=== PATIENT | male | born 1940 | race Caucasian/White ===

== ENCOUNTER 2016-09-16 | Outpatient (CLI) | payer MEDICARE, OTHER | END 2016-09-16 14:46 | disposition home or self-care (01) ==

== ENCOUNTER 2016-10-14 15:10 | Outpatient (CLI) | payer MEDICARE, OTHER | END 2016-10-14 15:11 | disposition home or self-care (01) | DX: G89.29 Other chronic pain (principal); M54.6 Pain in thoracic spine; J44.9 Chronic obstructive pulmonary disease, unspecified; K59.00 Constipation, unspecified; R53.83 Other fatigue; Z99.81 Dependence on supplemental oxygen; Z66 Do not resuscitate; Z79.891 Long term (current) use of opiate analgesic; Z51.5 Encounter for palliative care ==

== ENCOUNTER 2016-12-15 15:00 | Outpatient (CLI) | payer MEDICARE, OTHER | END 2016-12-15 15:01 | disposition home or self-care (01) | DX: Z51.5 Encounter for palliative care (principal); M54.6 Pain in thoracic spine; G89.29 Other chronic pain; J44.9 Chronic obstructive pulmonary disease, unspecified; K59.00 Constipation, unspecified; R53.83 Other fatigue; Z99.81 Dependence on supplemental oxygen; Z79.891 Long term (current) use of opiate analgesic; Z66 Do not resuscitate ==

== ENCOUNTER 2017-01-12 15:30 | Outpatient (CLI) | payer MEDICARE, OTHER | END 2017-01-12 15:31 | disposition home or self-care (01) | DX: Z51.5 Encounter for palliative care (principal); R06.00 Dyspnea, unspecified; S22.009D Unspecified fracture of unspecified thoracic vertebra, subsequent encounter for fracture with routine healing; J44.9 Chronic obstructive pulmonary disease, unspecified; Z99.81 Dependence on supplemental oxygen; M54.6 Pain in thoracic spine; R00.0 Tachycardia, unspecified; Z79.891 Long term (current) use of opiate analgesic; Z79.52 Long term (current) use of systemic steroids; Z79.899 Other long term (current) drug therapy; Z79.51 Long term (current) use of inhaled steroids; Z66 Do not resuscitate ==

== ENCOUNTER 2017-02-02 15:30 | Outpatient (CLI) | payer MEDICARE, OTHER ==
--- NOTE | 2017-02-04 10:02 | CONSULTATION NOTE ---
DATE OF CONSULTATION: 02/02/2017 00:00:00 REQUESTING PROVIDER: Momo Cox MD. TIME OF VISIT: 5692-1281. TOPIC: Followup palliative care consult. Thank you, Dr. Cox, for asking the palliative care consult service to be involved in the care of your patient. I am seeing him for pain and symptom management. He is seen in his home setting second jameel to a considerable and taxing effort for him to leave the home related to his baseline dyspnea, fa tigue and respiratory compromise. 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 He continues to have severe breathlessness w ith inability to leave the home and unable to participate in any sustained activity without increased respiratory distress. He has actually been more breathless from his baseline over the last couple of weeks and most severely over the last several days. The patient has had recurrent pneumonias in the past, but has remained actually quite well, as far as no further hospitalizations this last year, but has had close monitoring through the palliative care team. He had tried a prednisone burst without a ny improvement in symptoms. Today, he reports no increase in cough. No fever or chills, just less act ivity tolerance. Had been able originally when we met to shower daily, every other day, every third d ay, and this last week he can barely tolerate showering at all, needing assistance from his . He has had some increased anxiety and pain in his back, awakened early in the morning needing extra dose of IV hydromorphone. The patient uses hydromorphone for breathlessness and for his pain, but the pat ient is unable tolerate morphine, has had acute delirium on this. His other ALLERGY IS OXYCONTIN, whi ch has caused him tremors in the past. His pain is located about the T12 area. It includes back spasm s as well. He continues to be tachycardic. Today, he presents at about 100, and with any kind of acti vity or conversation is up to 116. His breath sounds are diminished at his baseline, though today I d o note he has some crackles and some wheezing in his left lower lobe from his baseline. He does have a nebulizer he uses a couple of times a day, has needed an extra one recently. His pain fluctuates, but has increased over the last few days. Has needed extra Dilaudid, he uses abo ut 2 tabs every 5 hours. Does feel like this provides good control, both of his pain and his breathle ssness. We have toyed with increasing his fentanyl, but given that he can use the Dilaudid in respons e to his respiratory distress and addresses his pain as well, did not want to add to sedation. has ac tually been able to ambulate. He does sleep quite a bit, but he is not sedated. CURRENT MEDICATION LIST 1. Tamsulosin 0.4 mg 1 extended release daily. 2. Furosemide 40 mg 1 tablet a.m. and noon. 3. Prednisone 10 mg daily. 4. Omeprazole, he is to restart this at 20 mg daily, has been off for a while. 5. Digoxin 125 mcg daily. 6. Xarelto 20 mg daily. 7. Baclofen 1 tab t.i.d. 8. Diltiazem 120 mg t.i.d. 9. Escitalopram 20 mg daily. 10. Echinacea 380 mg daily. 11. Mirtazapine 15 mg at bedtime. 12. Losartan 25 mg twice a day. 13. Guaifenesin 400 mg twice a day p.r.n. 14. Docusate sodium 250 mg 2 tabs b.i.d. 15. Zolpidem 5 mg at night p.r.n. 16. Hydromorphone 2 mg 1-2 tabs q.3h. p.r.n. breakthrough pain and breathlessness, up to 10 tabs a da y. 17. Alprazolam 0.5 mg 1/2 tab up to 4 times a day. 18. Atorvastatin 10 mg 1/2 tab at bedtime. 19. Potassium chloride 10 mEq daily. 20. Spiriva HandiHaler 18 mcg capsule daily. 21. Pulmicort Respules 0.25 in 2 mL, 1 vial nebulizer twice a day. 22. Fentanyl patch 25 mcg 1 patch every day for 3 days. CODE STATUS: THE PATIENT IS DO NOT ATTEMPT RESUSCITATION, DO NOT INTUBATE, LIMITED INTERVENTIONS, DET ERMINE THE USE OR LIMITATION OF ANTIBIOTICS WITH COMFORT THE GOAL AND NO MEDICALLY ASSISTED NUTRIT ION. BRIEF SOCIAL HISTORY: He is to his , Jennifer. This has been a very prolonged extended period o f distress for her. He has been acutely and chronically ill for several years, has mostly been house- bound for almost a year now and does not tolerate, both from anxiety and respiratory compromise, aleksandr g out. He does have some extensive support network from his yazdanism community, Jew, and frequent visitors. He does feel somewhat isolated, but has never complained of any depression. He has a very p ragmatic approach to all of this and denies being scared. He has a strong yin. Of note, his baselin e personality is somewhat anxious. He is also a [place] vet and this has been an important part of hi s life. PERFORMANCE STATUS: This continues to be compromised. He is able to ambulate short distances in the h ouse with his oxygen. Showering has become even more burdensome. His has had to help him this la st few weeks, which is new. He does not ambulate with assistive devices, but does spend most of his t arelis in the recliner or in his den watching TV. I would put him at a palliative care performance statu s at 50%. REVIEW OF SYSTEMS HEENT: Slightly hard of hearing. Has had some postnasal drip, has to clear his throat frequently. CARDIOVASCULAR: No chest pain or fluttering. The patient is on Xarelto for long-term atrial fibrillat ion. RESPIRATORY: As noted above. Reports perceived increased breathlessness and poor activity tolerance. GASTROINTESTINAL: Reports his bowels are moving. He has had some further taste changes, things have n ot tasted good. Some early satiety. Remains weight neutral though at 150. GENITOURINARY: The patient does catheterize himself 2-3 times a day for BPH. MUSCULOSKELETAL: Has stiffness and osteoarthritis, very poor activity tolerance. NEUROLOGIC: He is alert and oriented x3, quite bright and interactive, but does seem a little bit mor e distracted and difficulty concentrating today. PSYCHIATRIC: Denies depression, though admits to sadness and anxiety. ENDOCRINE: No hypothyroidism or diabetes. HEMATOLOGIC/IMMUNOLOGIC: Was treated last fall for an elevated white count and increased breathlessne ss, but other than that has not been hospitalized since last December for actually a UTI, not pneumonia. PHYSICAL EXAMINATION GENERAL APPEARANCE: He does have a slight cushingoid appearance in his face and respiratory rate incr eases with any conversation or activity. He does appear more breathless at rest. EYES: Slight periorbital edema. ENT: His mucous membranes are moist. No lymphadenopathy, no candidiasis. NECK: Trachea midline. RESPIRATORY: As noted above. VITAL SIGNS: Temperature 95.9, blood pressure 132/78, pulse 100, respiratory rate 28 at rest. O2 satu rations on 3 liters 92%. ABDOMEN: Slight protruding, firm, but soft. SKIN: Skin color pale. A few small hematoma on his forearm. EXTREMITIES: No lower extremity. PALLIATIVE CARE DISCUSSION: Who is present, myself, the patient, and his . We originally had our visit scheduled next week, but given his decline in status and the stress, I told his he felt li ke it was time for hospice. We did discuss given his current decline, my concern for being able to pr ovide increased support, particularly in the face of more difficulty with bathing, Jennifer needing more almazan pport to manage her caregiver fatigue and acknowledging the fact that he is showing more signs of dec line related to his disease process. His hesitation of course with hospice is it does mean that he is failing and moving towards end of life. He reports he is not scared, but is definitely apprehensive. Some of his hesitation of transitioning is we have a long-term relationship, but reassured him that transitioning to the hospice team would provide even more support and also decrease the course of iso lation as well. It is felt, given the conversation, the other hesitation was in transitioning to hosp ice as far as their friends and community, this would send out a message that he is imminently dying. Did address as far as hospice support and COPD, it is expected to be a more long-term relationship a nd that people sometimes "graduate." Also, if it was not a good fit or he improved to a point where sagar holt did not need the support of the hospice team, he could choose to come off hospice as well. His , Jennifer, is ready for some support. We did also though discuss that it needed to be at a point that he i s ready for no further hospitalizations, to focus on comfort only, and the goal would be to have a de ath at home, that hospice would become their 911. This actually was quite appealing to him, despite c onversations before that he would accept hospitalization. He does appear quite fatigued and resigned to his ongoing decline. Given the acute changes and the patient's goals, we did have a conversation a bout weighing the benefits and burdens of further treatment at this point in time. Agreed, would go a head and try a round of antibiotics. The patient did not want to go to the hospital or try to get a c hest x-ray, so we will be treating in response to his symptoms without confirmation. He is hoping of course for quality and quantity of life. He did want to see and give some time to sit with this decis ion over the weekend. Temporary arrangements were made for admit on Monday. If he changes his mind , he will call us on Monday. I did weigh in, as he did ask my recommendation, which was to transitherson romano to the hospice team. IMPRESSION: This is a 76-year-old gentleman with severe obstructive pulmonary disease with increased respiratory effort, functional decline, and ongoing escalating symptom burden. Suspect the patient poppy cisneros have currently at this point in time pneumonia. We will go ahead and treat for a clinical diagnosis . RECOMMENDATIONS/COUNSELING DONE 1. Community-acquired pneumonia. Given the patient's frailty, we will go ahead and treat with levoflo xacin 500 mg 1 tab daily for 5 days. His last labs, which were drawn in the fall did show him with a BUN of 22, creatinine 1.2, and GFR 65. This was a compromise as far as the patient wanting to look at quality and quantity of life. 2. End-stage chronic obstructive pulmonary disease. The patient does have functional decline. Respira tory effort and tachypnea at rest currently today with no conversation, he is at 28 per minute. He gresham s been oxygen dependent long-term. He is tachycardic at 100. With any activity, this increased to 112 . He has had some functional decline as well. 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 3. Chronic back pain secondary to vertebral fractures. He remains on fentanyl 25 mcg. He is using the hydromorphone, both for dyspnea and pain. Currently, will leave him at his current level, which is a cceptable. 4. Dyspnea, multifactorial in origin. He is using his hydromorphone, both for breathlessness and pain . He does feel like it does give him some relief along with his alprazolam. 5. Advanced care planning. Please see palliative care discussion above. The patient's goals are trans itioning to focusing on comfort, transitioning to the hospice team, is continuing to weigh the benefi ts and burdens of this, but currently has an appointment scheduled on Monday. TIME SPENT: 60 minutes with greater than 50% of this done in counseling and coordination of care, lawrence luating the patient's ongoing high symptom burden, treating for community-acquired pneumonia, as well as anticipatory guidance. Prescriptions were written for hydromorphone, and levothyroxine and omepra zole were called into [facility]. Thank you, Dr. Cox, for asking the palliative care consultation to be involved in the care of yo ur patient. I will go ahead and put him in the que for hospice and confirm with you on Monday about whether to send a hospice referral or not. JOB #: [id number] EXT JOB #:[id number]
== END 2017-02-02 15:31 | disposition home or self-care (01) ==
LOC: PC 15:30
PROVIDERS: ATTEND Nurse Practitioner Adult Health
DX: Z51.5 Encounter for palliative care (principal); J18.9 Pneumonia, unspecified organism; J44.9 Chronic obstructive pulmonary disease, unspecified; M54.9 Dorsalgia, unspecified; G89.29 Other chronic pain; R06.00 Dyspnea, unspecified; Z99.81 Dependence on supplemental oxygen; F41.9 Anxiety disorder, unspecified; R00.0 Tachycardia, unspecified; Z79.51 Long term (current) use of inhaled steroids; Z79.52 Long term (current) use of systemic steroids; Z66 Do not resuscitate; I48.91 Unspecified atrial fibrillation; Z79.01 Long term (current) use of anticoagulants; R68.81 Early satiety
CPT/HCPCS: 99350